=== PATIENT | female | born 1960 | race Caucasian/White ===

== ENCOUNTER 2020-09-05 14:20 | Emergency (ER) | payer MEDICAID, OTHER ==
[2020-09-05] MEDS ORDERED: Tetracaine HCl/PF 0.5% 4 ML Bottle EYELF ONE (14:29)
--- NOTE | 2020-09-05 14:44 | EDM.PDOC ---
ED HPI GENERAL MEDICAL PROBLEM - General Chief Complaint: ENT Problem Stated Complaint: L) eye foreign body Time Seen by Provider: 09/05/20 14:30 Source of Information: Reports: Patient History Limitations: Reports: No Limitations - History of Present Illness INITIAL COMMENTS - FREE TEXT/NARRATIVE: Iris is a 59 year old female who presents to ER with complaints of left eye jacqueline n. Was chopping wood and questions if got piece in her left eye. Mora noted to the left lateral eye. Tried to rinse it out at home but states has a difficult time keeping her eye open. She denies vision changes but admits eye is tearing so does get a little blurry at times. 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 [No Known Home Meds] 09/05/20 [History] Past Medical History - Past Health History Medical/Surgical History: Denies Medical/Surgical History Social & Family History - Family History Family Medical History: No Pertinent Family History - Tobacco Use Tobacco Use Status *Q: Never Tobacco User Second Hand Smoke Exposure: No - Caffeine Use Caffeine Use: Reports: None - Recreational Drug Use Recreational Drug Use: No ED ROS GENERAL - Review of Systems Review Of Systems: See Below Constitutional: Denies: Fever, Chills, Malaise, Weakness, Fatigue HEENT: Reports: Eye Discharge, Eye Pain. Denies: Ear Pain, Rhinitis, Throat Pain, Vertigo Respiratory: Reports: No Symptoms Cardiovascular: Reports: No Symptoms GI/Abdominal: Reports: No Symptoms ED EXAM GENERAL W FULL EYE - Physical Exam Exam: See Below Exam Limited By: No Limitations General Appearance: Alert, WD/WN, Mild Distress Eye Exam: Left Eye: Corneal Abrasion (Has linear corneal abrasion to 3 oclock region. No foreign body noted. Eye rinsed.), Bilateral Eye: EOMI, Proptosis Eyelids: Left: Lid Everted for Exam Cornea Exam: Left: Corneal Abrasion Extraocular Movements: Bilateral: Intact Pupils: Normal Accommodation ED EYE w/ Add Procedure - Eye Procedure Alcaine Drops Administered: Yes Eye Irrigated w/ Saline (ccs): 30 Antibiotic Oinment/Drps Admin: Left Eye Progress: No foreign body noted. Does have obvious corneal abrasion. tobradex drops instilled to left eye. Course - Vital Signs Last Recorded V/S: Last Vital Signs Temp 98.0 F 09/05/20 14:23 Pulse 85 09/05/20 14:23 Resp 18 09/05/20 14:23 BP 139/96 H 09/05/20 14:23 Pulse Ox 95 09/05/20 14:23 - Orders/Labs/Meds Orders: Active Orders 24 hr Category Date Time Status Dexamethasone/Tobramycin [Tobradex Ophth Susp] Med 09/05/20 15:00 Active See Dose Instructions EYELF Q4H Medication Orders Tobramycin/Dexamethasone (Tobradex Ophth Susp) 0 ml EYELF Q4H MARIS Last Admin: 09/05/20 15:08 Dose: 1 drop Documented by: VALERY Meds: Medications Generic Name Dose Route Start Last Admin Trade Name Frepauly PRN Reason Stop Dose Admin Tobramycin/Dexamethasone 0 ml 09/05/20 15:00 09/05/20 15:08 Tobradex Ophth Susp EYELF 1 drop Q4H MARIS Administration Discontinued Medications Generic Name Dose Route Start Last Admin Trade Name Frepauly PRN Reason Stop Dose Admin Fluorescein Sodium 1 mg 09/05/20 14:48 09/05/20 14:52 Ful-Aylin EYELF 09/05/20 14:49 1 mg ONETIME ONE Administration Tetracaine HCl 4 ml 09/05/20 14:29 09/05/20 14:31 Tetracaine 0.5% Steri-Unit Neha EYELF 09/05/20 14:30 3 drop ASDIRECTED ONE Administration Water 0 ml 09/05/20 14:49 09/05/20 14:52 Eye Wash Irrigation Soln EYELF 09/05/20 14:50 1 drop ONETIME ONE Administration Departure - Departure Time of Disposition: 14:43 Disposition: Home, Self-Care 01 Condition: Good Clinical Impression: Corneal abrasion, left - Discharge Information *PRESCRIPTION DRUG MONITORING PROGRAM REVIEWED*: No *COPY OF PRESCRIPTION DRUG MONITORING REPORT IN PATIENT MILEY: No Instructions: Corneal Abrasion, [id number] Forms: ED Department Discharge Additional Instructions: 1. Protective eye wear 2. Sun protection 3. Tobradex 2 drops QID for 7 days 4. Follow up with eye doctor if any persisting concerns. Sepsis Event Note (ED) - Evaluation Sepsis Screening Result: No Definite Risk - Focused Exam Vital Signs: Vital Signs Temp Pulse Resp BP Pulse Ox 09/05/20 14:23 98.0 F 85 18 139/96 H 95 - My Orders Last 24 Hours: My Active Orders 09/05/20 15:00 Dexamethasone/Tobramycin [Tobradex Ophth Susp] See Dose Instructions EYELF Q4H - Assessment/Plan Last 24 Hours: My Active Orders 09/05/20 15:00 Dexamethasone/Tobramycin [Tobradex Ophth Susp] See Dose Instructions EYELF Q4H
[2020-09-05] MEDS ORDERED: Fluorescein 1 MG Ophth Strip EYELF ONE (14:48)
[2020-09-05] MEDS ORDERED: Distilled Water Ophth Irrig Soln 120 ML Bottle EYELF ONE (14:49)
[2020-09-05] MEDS ORDERED: Dexamethasone/Tobramycin 0.1-0.3% Ophth Susp 2.5 ML Bottle EYELF SCH (15:00)
== END 2020-09-05 14:53 | disposition home or self-care (01) ==
LOC: CC.ED 14:20
DX: S05.02XA Injury of conjunctiva and corneal abrasion without foreign body, left eye, initial encounter (principal); W45.8XXA Other foreign body or object entering through skin, initial encounter
CPT/HCPCS: 99283